=== PATIENT | female | born 1955 | race Caucasian/White ===

== ENCOUNTER → 2017-02-15 | Outpatient (CLI) | payer BC ==
--- NOTE | 2017-02-15 08:43 | REPMRS ---
Patient History The patient states she has not had a clinical breast exam in over a year. Patient is postmenopausal. Family history of breast cancer in mother at age 50 or over. Took hormonal contraceptives for 3 years. Digital Woman Screen Mammo: February 15, 2017 - Exam #: [id number] Bilateral CC and MLO view(s) were taken. Technologist: Sheri Olmos, Technologist Prior study comparison: May 11, 2015, digital woman screen mammo performed at [facility]. May 01, 2013, bilateral bilat screen digital mammo, performed at [facility] ([facility]). October 28, 2010, bilateral screening mammogram, performed at [facility] ([facility]). FINDINGS: The breast tissue is almost entirely fat. There has been no change in the appearance of the mammogram from the prior studies. There is no interval development of dominant mass, architectural distortion, or clustered microcalcification typical of malignancy. ASSESSMENT: BI-RADS/ACR category 1 mammogram. Negative. Recommendation Routine screening mammogram of both breasts in 1 year (for women over age 40). This mammogram was interpreted with the aid of an FDA-approved computer-aided dectection system. Electronically Signed By: Saravanan Bond MD 02/15/17 0843
== END ==
LOC: M WHC 07:52
PROVIDERS: ATTEND Nurse Practitioner Family
DX: Z12.31 Encounter for screening mammogram for malignant neoplasm of breast (principal); Z78.0 Asymptomatic menopausal state; Z92.0 Personal history of contraception; Z80.3 Family history of malignant neoplasm of breast

== ENCOUNTER → 2019-04-18 | Outpatient (CLI) | payer BC ==
--- NOTE | 2019-04-18 11:51 | REPMRS ---
Patient History The patient states she had a clinical breast exam in 01/2019. Patient is postmenopausal. Family history of breast cancer at age 50 or over in mother. Took hormonal contraceptives for 3 years. Digital Woman Screen Mammo: April 18, 2019 - Exam #: [id number] Bilateral CC and MLO view(s) were taken. Technologist: Karen Nixon, Technologist Prior study comparison: February 15, 2017, digital woman screen mammo performed at [facility]. May 11, 2015, digital woman screen mammo performed at [facility]. May 01, 2013, bilateral bilat screen digital mammo, performed at [facility] ([facility]). FINDINGS: The breast tissue is almost entirely fat. There has been no change in the appearance of the mammogram from the prior studies. There is no interval development of dominant mass, architectural distortion, or grouped microcalcification typical of malignancy. 3-D tomosynthesis shows no additional findings. Assessment: BI-RADS/ACR category 1 mammogram. Negative Mammogram. Recommendation Routine screening mammogram of both breasts in 1 year (for women over age 40). This patient's Lifetime Breast Cancer RIsk is estimated at 14.4 %. This mammogram was interpreted with the aid of an FDA-approved computer-aided dectection system. Electronically Signed By: Saravanan Bond MD 04/18/19 [id number]
== END ==
LOC: M WHC 06:26
PROVIDERS: ATTEND Nurse Practitioner Adult Health
DX: Z12.31 Encounter for screening mammogram for malignant neoplasm of breast (principal); Z78.0 Asymptomatic menopausal state; Z92.0 Personal history of contraception

== ENCOUNTER → 2021-06-16 | Outpatient (CLI) | payer MEDICARE, BC ==
--- NOTE | 2021-06-16 09:55 | REPMRS ---
Patient History The patient states she had a clinical breast exam in January 2021. Family history of breast cancer at age 50 or over in mother. Took hormonal contraceptives for 3 years. No breast complaints today Patient signed the MRS sheet 1st covid vaccine 01/17/21-left arm-Moderna 2nd covid vaccine 02/15/21-left arm Priors on PACS Patient Identification Verified Digital Woman Screen Mammo: June 16, 2021 - Exam #: [id number] Bilateral CC and MLO view(s) were taken. Technologist: Kalyn Courtney, Technologist Prior study comparison: April 18, 2019, bilateral digital woman screen mammo performed at [facility]. February 15, 2017, digital woman screen mammo performed at [facility]. FINDINGS: There are scattered fibroglandular densities. Screening. Digital screening (2D) mammography was performed bilaterally in the CC and MLO projections. Additionally, breast tomosynthesis (3D mammography) was performed bilaterally in the CC and MLO projections. Todays exam was compared to the prior exam/exams. By history, the patient has no complaints of a palpable breast abnormality or other significant breast complaints. The breasts are unchanged in size and shape. There are no peter-soft tissue densities or spiculated masses. There is no internal architectural distortion. There are no suspicious peter-calcific clusters. Skin thickening or nipple retraction is not present. IMPRESSION: BI-RADS Category 2- Benign Findings. There is no evidence of malignant alteration of the breasts. Followup examination recommended in one year. The Volpara volumetric breast density category is B, there are scattered areas of fibroglandular densities. This mammogram was [facility],an FDA approved computer aided detection system for mammography. The lifetime Tyrer-Cuzick score is 13.2 % Negative x-ray reports should not delay surgical consultation if a dominant or clinically suspicious mass is present. Not all breast cancers can be identified by mammography. Therefore, we recommend that you continue to perform regular breast self-examination and physical examination and then promptly contact your physician of any concerns or changes. Adenosis and dense breasts may obscure an underlying neoplasm. Assessment: BI-RADS/ACR category 2 mammogram. Benign Findings. Recommendation Routine screening mammogram of both breasts in 1 year. Electronically Signed By: Gilbert Osborne, 06/16/21 0935
== END ==
LOC: M WHC 08:58
PROVIDERS: ATTEND Nurse Practitioner Adult Health
DX: Z12.31 Encounter for screening mammogram for malignant neoplasm of breast (principal)

== ENCOUNTER → 2021-07-27 | Outpatient (REF) | payer MEDICARE, BC ==
[2021-07-27 19:08] LABS: CREATININE, URINE < 13.0 MG/DL; MALB URINE SIEMENS < 5.0 MG/L
== END ==
LOC: M LAB REF 17:00
PROVIDERS: ATTEND Nurse Practitioner Adult Health
DX: R73.09 Other abnormal glucose (principal); E78.00 Pure hypercholesterolemia, unspecified

== ENCOUNTER → 2024-07-15 | Outpatient (CLI) | payer MEDICARE, BC | LOC: M WHC 07:42 | PROVIDERS: ATTEND Nurse Practitioner Adult Health | DX: Z12.31 Encounter for screening mammogram for malignant neoplasm of breast (principal) ==

== ENCOUNTER → 2025-07-28 | Outpatient (CLI) | payer MEDICARE, BC | LOC: M WHC 07:49 | PROVIDERS: ATTEND Nurse Practitioner Adult Health | DX: Z12.31 Encounter for screening mammogram for malignant neoplasm of breast (principal); R92.313 Mammographic fatty tissue density, bilateral breasts ==